=== PATIENT | male | born 1960 ===

== ENCOUNTER 2025-02-21 09:38 | Day surgery (SDC) | payer OTHER ==
[2025-02-21] MEDS ORDERED: DIPHENHYDRAMINE HCL 50 MG/ML VIAL 1ML IV ONE (16:30)
[2025-02-21] MEDS ORDERED: MIDAZOLAM HCL 2 MG/2 ML VIAL IV ONE (16:30)
== END 2025-02-21 15:25 | disposition home or self-care (01) ==
LOC: AMB-ENDOS 09:38
PROVIDERS: ATTEND Internal Medicine
DX: D12.2 Benign neoplasm of ascending colon (principal); K63.5 Polyp of colon; K57.30 Diverticulosis of large intestine without perforation or abscess without bleeding; Z86.0101 Personal history of adenomatous and serrated colon polyps